=== PATIENT | male | born 1995 | race Caucasian/White ===

== ENCOUNTER 2021-04-22 02:47 | Outpatient (CLI) | payer MEDICAID, SELFPAY ==
[2021-04-22 07:32] LABS: Abs Immature Grans 0.02 10^3/uL (0.0-0.06); Absolute Basophil Count 0.08 10^3/uL (0.0-0.2); Absolute Eosinophil Count 0.24 10^3/uL (0.0-0.7); Absolute Lymphocyte Count 1.31 10^3/uL (1.2-3.4); Absolute Monocyte Count 0.59 10^3/uL (0.1-0.8); Absolute Neutrophil Count 3.18 10^3/uL (1.2-6.7); Basophils % 1.5; Eosinophils % 4.4; HGB 13.6 g/dL (13.5-17.5); Immature Grans % 0.4; Lymphocytes % 24.2; MCH 33.3 pg (27.0-33.0); MCHC 35.8 % (32.0-36.0); MCV 92.9 fL (80-95); MPV 9.1 fL (8.0-11.0); Monocytes % 10.9; Neutrophils % 58.6; Nucleated RBC 0 %; Platelet Count 255 10^3/uL (130-400); RBC 4.09 10^6/uL (4.36-5.78); RDW 12.3 % (11.8-14.1); WBC 5.42 10^3/uL (4.4-10.8)
[2021-04-22 09:00] LABS: Iron 110 ug/dL (65-175); Total Iron Binding Capacity 235 ug/dL (250-450); Transferrin Sat 47 % (20-55)
[2021-04-22 13:05] LABS: Ferritin > 2000 ng/mL (26-388)
== END 2021-04-22 02:48 | disposition home or self-care (01) ==
LOC: LBO 02:47
PROVIDERS: PCP Pediatrics; Visit Provider Psychiatry & Neurology Neurology
DX: Z85.841 Personal history of malignant neoplasm of brain (principal)
CPT/HCPCS: 36415; 82728; 83540; 83550; 85025

== ENCOUNTER 2021-05-05 01:43 | Outpatient (CLI) | payer MEDICAID, SELFPAY ==
--- NOTE | 2021-05-05 10:40 | DI.US_ITS ---
APPROVED REPORT EXAM: Comprehensive 2D, Doppler, and color-flow Echocardiogram Patient Location: Out-Patient [facility] Operator: Samantha Paris RDCS (AE) Indications: Medulloblastoma Other Information Study Quality: Technically Difficult parasternal views due to body habitus. Conclusion Normal left ventricular wall thickness and chamber size. Estimated ejection fraction is 55 to 60%. Wall motion is normal Normal right ventricular size and systolic function Both atria are normal in size Aortic valve is not well visualized. There is no aortic stenosis or regurgitation Normal tricuspid valve with mild regurgitation. Estimated right ventricular systolic pressure is 20 mmHg Normal mitral valve with trace regurgitation The pulmonic valve is not well visualized Wall motion Left Ventricle Left ventricular cavity is small. The left ventricular systolic function is normal. The left ventricu lar ejection fraction is within the normal range. There is normal left ventricular wall thickness. Th ere is normal LV segmental wall motion. There is no ventricular septal defect visualized. LVEF is 57% . Right Ventricle The right ventricle is normal size. The right ventricular systolic function is normal. The RVSP is 19 .7 mmHg. Atria The left atrium size is normal. The right atrium size is normal. The interatrial septum is intact wit h no evidence for an atrial septal defect. Aortic Valve The aortic valve is normal in structure. Number of aortic valve leaflets could not be assessed. There is no aortic valvular stenosis. No aortic regurgitation is present. Mitral Valve The mitral valve is normal in structure. No evidence of mitral valve stenosis. Trace mitral regurgita tion. Tricuspid Valve The tricuspid valve is normal in structure. There is no tricuspid valve stenosis. Mild tricuspid regu rgitation. Pulmonic Valve Pulmonic valve is not well visualized. There is no pulmonic valvular stenosis. There is no pulmonic v alvular regurgitation. Great Vessels The aortic root is normal in size. Ascending aorta is not well visualized. Aortic arch is normal in c aliber. IVC is normal in size and collapses >50% with inspiration. Pericardium There is no pericardial effusion. 2D Dimensions IVSD d PLAX 0.72 cm M: 0.6-1.2 LV Vol A2C d MOD 85.3 mL LVPW d PLAX 0.72 cm M: 0.6 - 1.2 LV Vol A4C d MOD 67.1 mL LVID d PLAX 3.60 cm M: 4.2 - 5.8 LA vol/ BSA A2C s A-L 18.7 mL/m2 LVDs 2.55 cm M: 2.5 - 4.0 LA vol/ BSA A4C s A-L 13.0 mL/m2 Ao Root d 2.05 cm M: 3.1 - 3.7 LA Vol/ BSA Biplane s A-L 15.8 mL/m2 RA Area A4C 7.98 cm2 LA Area A4C s MOD 9.43 cm2 RA Vol/ BSA A4C s A-L 11.6 mL/m2 LA Area A2C s MOD 11.18 cm2 LV EF Teichholz 54.8 % LV EF A4C MOD 58.5 % LVEF (Henao's) 57.43 % M: 52 - 72 LV EF A2C MOD 57.6 % LV Volume 64.79 mL M: 62 - 150 LV EF Biplane MOD 57.4 % LV Volume Index 44.37 mL/m2 M: 34 - 74 SV 44.22 mL LV Vol Biplane MOD 77.0 mL SV Index 30.19 mL/m2 FS 27.75 % M-Mode TAPSE 1.32 cm (M/F) >1.7 LV Diastology MV E' medial 0.104 (>0.07 m/s) E/A Ratio 1.8 LV E/e MED 8.50 (<14) MV E Vmax 0.89 (0.4-1.3 m/s) MV E' lateral 0.130 (>0.1 m/s) MV A Vmax 0.50 (0.4-1.3 m/s) LV E/e LAT 6.80 (<14) MV E/A Ratio 1.69 MV E/E' medial 8.53 MV E/E' lateral 6.84 Aortic Valve LVOT Area 2.58 cm2 AoV Area Vmax 2.17 cm2 LVOT Vmax 0.88 m/s AoV Area/ BSA (Vmax) 1.48 cm2/m2 LVOT Mean Moreno. 0.59 m/s RANJEET Mean Moreno. 2.13 cm2 LVOT Peak Grad 3.1 mmHg RANJEET Mean Moreno. Index 1.45 cm2/m2 LVOT Mean Grad 1.5 mmHg LVOT VTI 0.170 m LVOT Diam s 1.80 cm AoV Vmax 1.04 m/s Velocity Ratio 0.84 AoV Mean Moreno. 0.71 m/s AoV Peak Grad 4.3 mmHg LVOT SV 43.96 mL AoV Mean Grad 2.2 mmHg AoV VTI 0.205 m AoV Area VTI 2.15 cm2 AoV Area/ BSA (VTI) 1.47 cm/m2 Mitral Valve MV DT 177 (160-240 msec) MV PHT 51 msec MV Area PHT 4.29 cm2 MV VTI 0.258 m MV Area VTI 1.70 (4.0-6.0 cm2) Pulmonary Valve PV Vmax 0.77 (0.5-1.5 m/s) RVOT Peak Gr. 0.96 mmHg PV Peak Grad 2.4 mmHg RVOT Mean Gr. 0.55 mmHg PV Mean Grad 1.6 mmHg RVOT VTI 0.081 m PV VTI 0.184 m RVOT Vmax 0.49 m/s Tricuspid Valve TR Peak Grad 16.7 mmHg TR Vmax 2.04 m/s RA Pressure 3.00 mmHg RVSP (TR) 19.7 mmHg
== END 2021-05-05 02:03 ==
PROVIDERS: PCP Pediatrics; Visit Provider Psychiatry & Neurology Neurology
DX: C71.6 Malignant neoplasm of cerebellum (principal)
CPT/HCPCS: 93306

== ENCOUNTER 2021-10-19 03:05 | Outpatient (CLI) | payer MEDICAID, SELFPAY ==
[2021-10-19 09:04] LABS: Abs Immature Grans 0.01 10^3/uL (0.0-0.06); Absolute Basophil Count 0.08 10^3/uL (0.0-0.2); Absolute Eosinophil Count 0.12 10^3/uL (0.0-0.7); Absolute Lymphocyte Count 1.91 10^3/uL (1.2-3.4); Absolute Monocyte Count 0.65 10^3/uL (0.1-0.8); Absolute Neutrophil Count 2.58 10^3/uL (1.2-6.7); Basophils % 1.5; Eosinophils % 2.2; HCT 38.6 % (40.0-50.0); HGB 13.5 g/dL (13.5-17.5); Immature Grans % 0.2; Lymphocytes % 35.7; MCH 32.8 pg (27.0-33.0); MCV 93.9 fL (80-95); MPV 9.9 fL (8.0-11.0); Monocytes % 12.1; Neutrophils % 48.3; Nucleated RBC 0 %; Platelet Count 249 10^3/uL (130-400); RBC 4.11 10^6/uL (4.36-5.78); RDW 12.6 % (11.8-14.1); RDW-SD 43.4 fL; WBC 5.35 10^3/uL (4.4-10.8)
[2021-10-19 09:50] LABS: Iron 136 ug/dL (65-175); Total Iron Binding Capacity 260 ug/dL (250-450)
[2021-10-19 10:14] LABS: Vitamin D 25 Total 56.1 ng/mL (30-100)
[2021-10-19 10:29] LABS: TSH 0.65 uIU/mL (0.36-3.74)
[2021-10-19 10:33] LABS: Ferritin > 2000 ng/mL (26-388)
[2021-10-19 10:48] LABS: FREE T4 0.97 ng/dL (0.76-1.46)
[2021-10-19 17:44] LABS: FSH 23.2 mIU/mL (1.4-18.1); LH 7.9 mIU/mL (1.5-9.3)
[2021-10-24 15:47] LABS: Testosterone, Free 17.1 ng/dL (5.05-19.8); Testosterone, Total 812 ng/dL (240-950)
== END 2021-10-19 03:06 | disposition home or self-care (01) ==
LOC: LBO 03:06
PROVIDERS: Visit Provider Internal Medicine Endocrinology, Diabetes & Metabolism
DX: C71.6 Malignant neoplasm of cerebellum (principal); E83.19 Other disorders of iron metabolism; E29.1 Testicular hypofunction; E03.9 Hypothyroidism, unspecified
CPT/HCPCS: 36415; 82306; 84402; 84403; 82728; 83001; 83002; 83540; 83550; 84439; 84443; 85025

== ENCOUNTER 2023-01-17 03:04 | Outpatient (CLI) | payer MEDICAID, SELFPAY ==
[2023-01-17 13:15] LABS: FREE T4 1.03 ng/dL (0.76-1.46); TSH 0.29 uIU/mL (0.36-3.74)
[2023-01-18 11:50] LABS: LH 8.3 mIU/mL (1.5-9.3)
[2023-01-20 22:05] LABS: Testosterone, Total 890 ng/dL (240-950)
== END 2023-01-17 03:05 | disposition home or self-care (01) ==
PROVIDERS: PCP Nurse Practitioner Family; Visit Provider Internal Medicine Endocrinology, Diabetes & Metabolism
DX: E29.1 Testicular hypofunction (principal); E03.9 Hypothyroidism, unspecified
CPT/HCPCS: 36415; 84403; 83001; 83002; 84439; 84443

== ENCOUNTER 2023-06-16 04:14 | Outpatient (CLI) | payer MEDICARE, MEDICAID, SELFPAY ==
[2023-06-16 14:35] LABS: Abs Immature Grans 0.02 10^3/uL (0.0-0.06); Absolute Basophil Count 0.08 10^3/uL (0.0-0.2); Absolute Eosinophil Count 0.12 10^3/uL (0.0-0.7); Absolute Lymphocyte Count 1.96 10^3/uL (1.2-3.4); Absolute Monocyte Count 0.56 10^3/uL (0.1-0.8); Absolute Neutrophil Count 2.89 10^3/uL (1.2-6.7); Basophils % 1.4; Eosinophils % 2.1; HCT 36.9 % (40.0-50.0); HGB 13.3 g/dL (13.5-17.5); Immature Grans % 0.4; Lymphocytes % 34.8; MCH 33.3 pg (27.0-33.0); MCV 92 fL (80-95); MPV 9.3 fL (8.0-11.0); Monocytes % 9.9; Neutrophils % 51.4; Platelet Count 257 10^3/uL (130-400); RDW 12.8 % (11.8-14.1); RDW-SD 43.4 fL; WBC 5.63 10^3/uL (4.4-10.8)
[2023-06-16 14:58] LABS: Hemoglobin A1C 5.3 % (<5.7)
[2023-06-16 15:22] LABS: Iron 132 ug/dL (65-175); Total Iron Binding Capacity 247 ug/dL (250-450)
[2023-06-16 15:26] LABS: ALT 91 U/L (16-63); AST 38 U/L (15-37); Alkaline Phosphatase 79 U/L (46-116); Anion Gap 4.5 mmol/L (3-11); BUN 15 mg/dL (7-18); Bilirubin, Total 0.3 mg/dL (0.2-1.0); CO2 33.5 mmol/L (21.0-32.0); CREATININE 1.1 mg/dL (0.70-1.30); Calcium 9.2 mg/dL (8.5-10.1); Calculated LDL 124 mg/dL (<100); Chloride 100 mmol/L (98-107); Cholesterol 220 mg/dL (<200); Estimated GFR 93.19 (mL/min/1.73m2); Glucose 103 mg/dL (74-106); HDL Cholesterol 38 mg/dL (40-60); Potassium 3.3 mmol/L (3.5-5.1); Sodium 138 mmol/L (136-145); Total Protein 7.2 g/dL (6.4-8.2); Triglyceride 294 mg/dL (<150)
[2023-06-16 15:59] LABS: Ferritin > 2000 ng/mL (26-388)
[2023-06-17 09:12] LABS: Transferrin 204 mg/dL (201-352)
== END 2023-06-16 04:15 | disposition home or self-care (01) ==
PROVIDERS: PCP Nurse Practitioner Family; Visit Provider Nurse Practitioner Family
DX: Z13.1 Encounter for screening for diabetes mellitus (principal); E83.19 Other disorders of iron metabolism; Z13.220 Encounter for screening for lipoid disorders; C71.9 Malignant neoplasm of brain, unspecified
CPT/HCPCS: 36415; 80053; 80061; 82728; 83036; 83540; 83550; 84466; 85025

== ENCOUNTER 2023-12-27 03:44 | Outpatient (CLI) | payer MEDICARE, MEDICAID, SELFPAY ==
[2023-12-27 16:29] LABS: FREE T4 0.88 ng/dL (0.76-1.46); TSH 0.43 uIU/mL (0.36-3.74)
== END 2023-12-27 03:45 | disposition home or self-care (01) ==
PROVIDERS: PCP Nurse Practitioner Family; Visit Provider Internal Medicine Endocrinology, Diabetes & Metabolism
DX: E03.9 Hypothyroidism, unspecified (principal)
CPT/HCPCS: 36415; 84439; 84443

== ENCOUNTER → 2024-05-28 02:24 | Outpatient (CLI) | payer MEDICARE, MEDICAID, SELFPAY ==
--- NOTE | 2024-05-28 09:30 | DI.US_ITS ---
APPROVED REPORT EXAM: Comprehensive 2D, Doppler, and color-flow Echocardiogram Patient Location: Out-Patient [facility] Director: Cornelius Marte RDCS (AE) Indications: Cardiomyopathy Conclusion Normal left ventricular wall thickness and chamber size. Ejection fraction is 58%. Wall motion is n ormal Normal right ventricular size and function Both atria are normal in size There is no structural or hemodynamically significant valvular disease Estimated right ventricular systolic pressure is 25 mmHg Wall motion Left Ventricle Left ventricular cavity is small. The left ventricular systolic function is normal. The left ventricu lar ejection fraction is within the normal range. There is normal left ventricular wall thickness. Th ere is normal LV segmental wall motion. There is no ventricular septal defect visualized. LVEF is 58% . Right Ventricle The right ventricle is normal size. The right ventricular systolic function is normal. Atria The left atrium size is normal. The right atrium size is normal. The interatrial septum is intact wit h no evidence for an atrial septal defect. Aortic Valve The aortic valve is normal in structure. Aortic valve is trileaflet. There is no aortic valvular sten osis. No aortic regurgitation is present. Mitral Valve The mitral valve is normal in structure. No evidence of mitral valve stenosis. There is no mitral dony ve regurgitation noted. Tricuspid Valve The tricuspid valve is normal in structure. There is no tricuspid valve stenosis. Mild tricuspid regu rgitation. The RVSP is 25.5 mmHg. Pulmonic Valve The pulmonary valve is normal in structure. There is no pulmonic valvular stenosis. There is no pulmo maurizio valvular regurgitation. Great Vessels The aortic root is normal in size. The ascending aorta is normal in size. Aortic arch is normal in ca liber. IVC is normal in size and collapses >50% with inspiration. Pericardium There is no pericardial effusion. 2D Dimensions IVSD d PLAX 0.40 cm M: 0.6-1.2 Ao Root d 2.22 cm M: 3.1 - 3.7 LVPW d PLAX 0.43 cm M: 0.6 - 1.2 Ao Asc Diam d 2.44 cm M: 2.6 - 3.4 LVID d PLAX 3.71 cm M: 4.2 - 5.8 LVDs 2.61 cm M: 2.5 - 4.0 LV EF Teichholz 57.6 % FS 29.68 % LV EDV (Teich) 58.4 mL LV ESV (Teich) 24.8 mL Stroke Vol Index (Teich) 21.99 M-Mode TAPSE 1.83 cm (M/F) >1.7 Auto EF LV EDV A4C 50.7 mL LV EDV A2C 96.9 mL LV EDV BP 69.7 mL LV ESV A4C 21.4 mL LV ESV A2C 40.3 mL LV ESV BP 29.0 mL LVEF(%) A4C 57.8 % LVEF(%) A2C 58.5 % LVEF(%) BP 58.4 % LV SV A4C 29.3 ml LV SV A2C 56.7 ml LV SV BP 40.7 ml LV CO A4C 2.2 L/min LV CO A2C 4.1 L/min LV CO BP 3.1 L/min HR A4C 73.62 BPM HR A2C 71.86 BPM LV EDV Index (BP) LA Volume LA Length A4C 3.2 cm LA Length A2C 4.3 cm LA Area A4C s 6.51 cm2 LA Area A2C s 9.88 cm2 LA Vol A4C A-L 11.21 mL LA Vol A2C A-L 19.10 mL LA Vol Biplane A-L 17.0 mL LA Vol/BSA A4C A-L LA Vol/BSA A2C A-L LA Vol/BSA BP A-L 11.1 mL/m2 LA Vol A4C MOD 10.5 mL LA Vol A2C MOD 18.8 mL LA Vol BP MOD 16.2 mL RA Volume RA Area A4C 7.9 cm2 RA ESV A4C (A-L) 17.7mL RA Vol/BSA A4C A-L RA Length A4C 3.0 cm RA ESV A4C (MOD) 15.1mL LV Diastology MV E' medial 0.087 (>0.07 m/s) MV E Vmax 0.87 (0.4-1.3 m/s) MV E/E' MED 9.96 (<14) MV A Vmax 0.55 (0.4-1.3 m/s) MV E' lateral 0.131 (>0.1 m/s) E/A Ratio 1.6 MV E/E' LAT 6.64 (<14) MV E' Average 0.109 m/s MV E/E'(average) 7.97 Aortic Valve AoV Vmax 0.91 m/s LVOT Vmax 0.83 m/s AoV Peak Grad 3.3 mmHg LVOT Peak Grad 2.7 mmHg AoV Area (Vmax) 2.09 cm2 LVOT VTI 0.166 m AoV VTI 0.141 m LVOT Mean Grad 1.6 mmHg AoV Mean Moreno. 0.60 m/s LVOT SV 38.21 mL AoV Mean Grad 1.7 mmHg LVOT Diam s 1.70 cm AoV Area (VTI) 2.71 cm2 Velocity Ratio 0.91 Mitral Valve MV DT 198 (160-240 msec) Pulmonary Valve PV Vmax 0.69 (0.5-1.5 m/s) RVOT Vmax 0.50 m/s PV Peak Grad 1.9 mmHg RVOT Peak Gr. 1.0 mmHg PV Mean Moreno 0.51 m/s RVOT VTI 0.087 m PV Mean Grad 1.2 mmHg RVOT Mean Gr. 0.6 mmHg Tricuspid Valve RA Pressure 3.00 mmHg TR Vmax 2.37 m/s TR Peak Grad 22.5 mmHg RVSP (TR) 25.5 mmHg
== END ==
PROVIDERS: PCP Nurse Practitioner Family; Visit Provider Psychiatry & Neurology Neurology
DX: I42.7 Cardiomyopathy due to drug and external agent (principal)
CPT/HCPCS: 93306

== ENCOUNTER 2024-07-02 03:54 | Outpatient (CLI) | payer MEDICARE, MEDICAID, SELFPAY ==
[2024-07-02 11:41] LABS: Cholesterol 236 mg/dL (<200); HDL Cholesterol 44 mg/dL (40-60); TSH (W/Ref FT4) 0.61 uIU/mL (0.36-3.74); Triglyceride 442 mg/dL (<150)
[2024-07-02 11:52] LABS: LDL CHOLESTEROL 129 mg/dL (<100)
== END 2024-07-02 03:55 | disposition home or self-care (01) ==
PROVIDERS: PCP Nurse Practitioner Family; Visit Provider Nurse Practitioner Family
DX: E03.9 Hypothyroidism, unspecified (principal); E78.2 Mixed hyperlipidemia; Z13.220 Encounter for screening for lipoid disorders
CPT/HCPCS: 36415; 80061; 83721; 84443

== ENCOUNTER 2025-06-06 02:35 | Outpatient (CLI) | payer MEDICARE, MEDICAID, SELFPAY ==
[2025-06-06 09:05] LABS: Abs Immature Grans 0.01 10^3/uL (0.0-0.06); HCT 38.6 % (40.0-50.0); HGB 13.7 g/dL (13.5-17.5); Immature Grans % 0.2 %; MCH 32.1 pg (27.0-33.0); MCHC 35.5 % (32.0-36.0); MCV 90 fL (80-95); MPV 9.6 fL (8.0-11.0); Platelet Count 253 10^3/uL (130-400); RBC 4.27 10^6/uL (4.36-5.78); RDW 12.8 % (11.8-14.1); RDW-SD 42.5 fL; WBC 5.07 10^3/uL (4.4-10.8)
[2025-06-06 09:39] LABS: Hemoglobin A1C 5.4 % (<5.7)
[2025-06-06 10:07] LABS: Iron 124 ug/dL (65-175)
[2025-06-06 10:22] LABS: ALT 69 U/L (16-63); AST 34 U/L (15-37); Albumin 4.0 g/dL (3.4-5.0); Alkaline Phosphatase 92 U/L (46-116); Anion Gap 7.6 mmol/L (3-11); BUN 19 mg/dL (7-18); Bilirubin, Total 0.3 mg/dL (0.2-1.0); CO2 31.4 mmol/L (21.0-32.0); Calcium 9.6 mg/dL (8.5-10.1); Chloride 100 mmol/L (98-107); Estimated GFR 75.32 (mL/min/1.73m2); Glucose 100 mg/dL (74-106); Potassium 4.0 mmol/L (3.5-5.1); Sodium 139 mmol/L (136-145); Total Protein 7.4 g/dL (6.4-8.2)
[2025-06-06 10:25] LABS: Ferritin 1798 ng/mL (26-388)
[2025-06-06 11:04] LABS: Calculated LDL 130 mg/dL (<100); Cholesterol 227 mg/dL (<200); HDL Cholesterol 40 mg/dL (>or=40); TSH (W/Ref FT4) 0.52 uIU/mL (0.36-3.74); Triglyceride 287 mg/dL (<150)
[2025-06-07 09:21] LABS: Transferrin 218 mg/dL (201-352)
== END 2025-06-06 02:36 | disposition home or self-care (01) ==
PROVIDERS: PCP Nurse Practitioner Family; Visit Provider Psychiatry & Neurology Neurology
DX: Z13.1 Encounter for screening for diabetes mellitus (principal); Z13.220 Encounter for screening for lipoid disorders; E78.5 Hyperlipidemia, unspecified; E03.9 Hypothyroidism, unspecified; C71.6 Malignant neoplasm of cerebellum
CPT/HCPCS: 80053; 80061; 82728; 83036; 83540; 84443; 84466; 85025